=== PATIENT | female | born 1970 | race Caucasian/White ===

== ENCOUNTER 2017-11-09 06:25 | Day surgery (SDC) | payer BC, OTHER ==
[~2017-11-09 06:25] MED LIST: Lactated Ringers 1,000 ML IV SCH; Lidocaine 1%/Sod Bicarbonate in NS 8.4% 1 ML Syringe IV PRN; Sodium Chloride 0.9% 10 ML Syringe FLUSH PRN
--- NOTE | 2017-11-09 07:20 | PCM.PREANE ---
Preanesthetic Assessment - Anesthesia/Transfusion/Family Hx Anesthesia History: Prior Anesthesia Reaction (nausea) Family History of Anesthesia Reaction: No - Review of Systems General: No Symptoms Pulmonary: No Symptoms Cardiovascular: No Symptoms Gastrointestinal: No Symptoms Neurological: No Symptoms Other: Reports: None - Physical Assessment NPO Status Date: 11/08/17 NPO Status Time: 00:00 Pulse: 75 O2 Sat by Pulse Oximetry: 96 Respiratory Rate: 18 Blood Pressure: 144/80 Temperature: 36.8 C Vital Signs: Last Vital Signs Temp 36.8 C 11/09/17 06:30 Pulse 75 11/09/17 06:30 Resp 18 11/09/17 06:30 BP 144/80 H 11/09/17 06:30 Pulse Ox 96 11/09/17 06:30 Height: 1.7 m Weight: 142.519 kg ASA Class: 3 Mental Status: Alert & Oriented x3 Dentition: Reports: Normal Dentition, [place](s) Thyro-Mental Finger Breadths: 3 Mouth Opening Finger Breadths: 3 ROM/Head Extension: Full Lungs: Clear to Auscultation, Normal Respiratory Effort Cardiovascular: Regular Rate, Regular Rhythm, No Murmurs - Lab Values: Laboratory Last Values WBC 9.94 K/mm3 (3.98-10.04) 11/09/17 07:00 RBC 4.30 M/mm3 (3.98-5.22) 11/09/17 07:00 Hgb 13.3 gm/L (11.2-15.7) 11/09/17 07:00 Hct 42.0 % (34.1-44.9) 11/09/17 07:00 MCV 97.7 fl (79.4-94.8) H 11/09/17 07:00 MCH 30.9 pg (25.6-32.2) 11/09/17 07:00 MCHC 31.7 g/dl (32.2-35.5) L 11/09/17 07:00 RDW Std Deviation 47.9 fL (36.4-46.3) H 11/09/17 07:00 Plt Count 422 K/mm3 (182-369) H 11/09/17 07:00 MPV 9.7 fl (9.4-12.3) 11/09/17 07:00 Neut % (Auto) 60.8 % (34.0-71.1) 11/09/17 07:00 Lymph % (Auto) 28.0 % (19.3-51.7) 11/09/17 07:00 [place] % (Auto) 7.8 % (4.7-12.5) 11/09/17 07:00 Eos % (Auto) 2.2 (0.7-5.8) 11/09/17 07:00 Baso % (Auto) 0.8 % (0.1-1.2) 11/09/17 07:00 Neut # (Auto) 6.04 K/mm3 (1.56-6.13) 11/09/17 07:00 Lymph # (Auto) 2.78 K/mm3 (1.18-3.74) 11/09/17 07:00 [place] # (Auto) 0.78 K/mm3 (0.24-0.36) H 11/09/17 07:00 Eos # (Auto) 0.22 K/mm3 (0.04-0.36) 11/09/17 07:00 Baso # (Auto) 0.08 K/mm3 (0.01-0.08) 11/09/17 07:00 Sodium 138 mEq/L (136-145) 10/17/17 15:18 Potassium 4.0 mEq/L (3.5-5.1) 10/17/17 15:18 Chloride 101 mEq/L (98-107) 10/17/17 15:18 Carbon Dioxide 25 mEq/L (21-32) 10/17/17 15:18 Anion Gap 16.0 (5-15) H 10/17/17 15:18 BUN 23 mg/dL (7-18) H 10/17/17 15:18 Creatinine 0.8 mg/dL (0.55-1.02) 10/17/17 15:18 Est Cr Clr Drug Dosing TNP 10/17/17 15:18 Estimated GFR (MDRD) > 60 mL/min (>60) 10/17/17 15:18 BUN/Creatinine Ratio 28.8 (14-18) H 10/17/17 15:18 Glucose 89 mg/dL (74-106) 10/17/17 15:18 Calcium 9.7 mg/dL (8.5-10.1) 10/17/17 15:18 Total Bilirubin 0.3 mg/dL (0.2-1.0) 10/17/17 15:18 AST 15 U/L (15-37) 10/17/17 15:18 ALT 34 U/L (14-59) 10/17/17 15:18 Alkaline Phosphatase 57 U/L (46-116) 10/17/17 15:18 Total Protein 7.9 g/dl (6.4-8.2) 10/17/17 15:18 Albumin 4.2 g/dl (3.4-5.0) 10/17/17 15:18 Globulin 3.7 gm/dL 10/17/17 15:18 Albumin/Globulin Ratio 1.1 (1-2) 10/17/17 15:18 Urine Color Yellow (Yellow) 11/09/17 06:36 Urine Appearance Clear (Clear) 11/09/17 06:36 Urine pH 6.0 (5.0-8.0) 11/09/17 06:36 Ur Specific [place] > or = 1.030 (1.005-1.030) 11/09/17 06:36 Urine Protein Negative (Negative) 11/09/17 06:36 Urine Glucose (UA) Negative (Negative) 11/09/17 06:36 Urine Ketones Negative (Negative) 11/09/17 06:36 Urine Occult Blood Negative (Negative) 11/09/17 06:36 Urine Nitrite Negative (Negative) 11/09/17 06:36 Urine Bilirubin Negative (Negative) 11/09/17 06:36 Urine Urobilinogen 0.2 (0.2-1.0) 11/09/17 06:36 Ur Leukocyte Esterase Negative (Negative) 11/09/17 06:36 Urine RBC 0-5 /hpf (0-5) 11/09/17 06:36 Urine WBC 0-5 /hpf (0-5) 11/09/17 06:36 Ur Epithelial Cells 0-5 /hpf (0-5) 11/09/17 06:36 Urine Bacteria Few /hpf (FEW) 11/09/17 06:36 Urine Mucus Few /hpf (FEW) 11/09/17 06:36 Urine HCG, Qual Negative (NEGATIVE) 11/09/17 06:36 - Allergies Allergies/Adverse Reactions: Allergies Allergy/AdvReac Type Severity Reaction Status Date / Time rhubarb Allergy Cannot Verified 11/08/17 16:24 Remember - Anesthesia Plan Pre-Op Medication Ordered: Beta Josie Beta Josie: Propranolol Med Last Dose Date: 11/09/17 Med Last Dose Time: 04:10 - Acknowledgements Anesthesia Type Planned: General Anesthesia Pt an Appropriate Candidate for the Planned Anesthesia: Yes Alternatives and Risks of Anesthesia Discussed w Pt/Guardian: Yes Pt/Guardian Understands and Agrees with Anesthesia Plan: Yes PreAnesthesia Questionnaire HEENT History: Reports: Other (See Below) 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 Cardiovascular History: Reports: Hypertension Respiratory History: Reports: Sleep Apnea Genitourinary History: Reports: None 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: Reports: Endometriosis, Other (See Below) Other OB/BYN History: dysmenorrhea, irregular menses, metrohhagia, ovarian cyst , , laparoscopy Musculoskeletal History: Reports: Back Pain, Chronic, Other (See Below) Other Musculoskeletal History: humerus fracture Neurological History: Reports: Migraines Psychiatric History: Reports: Anxiety Endocrine/Metabolic History: Reports: Diabetes, Type II Hematologic History: Reports: None Immunologic History: Reports: None Oncologic (Cancer) History: Reports: None Dermatologic History: Reports: None - Past Surgical History HEENT Surgical History: Reports: None Cardiovascular Surgical History: Reports: None Respiratory Surgical History: Reports: None GI Surgical History: Reports: Hernia, Inguinal Female Surgical History: Reports: None, D&C Endocrine Surgical History: Reports: None Neurological Surgical History: Reports: None Other Musculoskeletal Surgeries/Procedures:: right foot surgery with hardware Oncologic Surgical History: Reports: None Dermatological Surgical History: Reports: None - SUBSTANCE USE Smoking Status *Q: Former Smoker Second Hand Smoke Exposure: No Days Per Week of Alcohol Use: 0 Number of Drinks Per Day: 0 Total Drinks Per Week: 0 Recreational Drug Use History: No - HOME MEDS Home Medications: Home Meds Albuterol [Ventolin HFA] 2 puff INH Q4H PRN 03/09/15 [History] Budesonide/Formoterol [Symbicort 160-4.5 MCG] 2 puff INH BID PRN 03/09/15 [ History] Cyclobenzaprine [Flexeril] 10 mg PO BEDTIME PRN 03/09/15 [History] ALPRAZolam [Xanax] 0.5 mg PO BEDTIME PRN 11/08/17 [History] DULoxetine HCl [Duloxetine HCl] 60 mg PO DAILY 11/08/17 [History] Hydrocodone/Acetaminophen [Hydrocodon-Acetaminophn 10-325] 1 - 2 each PO Q6HR PRN 11/08/17 [History] Meloxicam [Meloxicam] 15 mg PO DAILY 11/08/17 [History] Montelukast [Singulair] 10 mg PO DAILY 11/08/17 [History] Potassium Chloride 10 meq PO DAILY 11/08/17 [History] Promethazine [Phenergan] 25 mg PO Q8H PRN 11/08/17 [History] Propranolol HCl 40 mg PO BID 11/08/17 [History] SUMAtriptan Succinate [Imitrex] 100 mg PO ASDIRECTED PRN 11/08/17 [History] Triamterene/Hydrochlorothiazid [Triamterene-HCTZ 37.5-25 MG] 1 tab PO DAILY [History] amLODIPine Besylate [Amlodipine Besylate] 10 mg PO DAILY 11/08/17 [History] metFORMIN [Glucophage] 1,000 mg PO BEDTIME 11/08/17 [History] - CURRENT (IN HOUSE) MEDS Current Meds: Current Medications Lactated Ringer's (Ringers, Lactated) 1,000 mls @ 125 mls/hr IV ASDIRECTED MARY Stop: 11/09/17 18:00 Lidocaine/Sodium Bicarbonate (Buffered Lidocaine 1% In Ns 8.4%) 0.25 ml IV ONETIME PRN PRN Reason: Prior to IV Start Stop: 11/09/17 18:00 Sodium Chloride (Saline Flush) 10 ml FLUSH ASDIRECTED PRN PRN Reason: Keep Vein Open Stop: 11/09/17 18:00
[2017-11-09] MEDS ORDERED: Bupivacaine 0.5% 30 ML SDV ONE (07:22)
[2017-11-09] MEDS ORDERED: Scopolamine 1.5 MG Transdermal Patch TOP ONE (07:25)
[2017-11-09] MEDS ORDERED: Rocuronium 50 MG/5 ML Vial ONE ×2 (07:38→09:04)
[2017-11-09] MEDS ORDERED: Ondansetron 4 MG/2 ML SDV ONE (07:38)
[2017-11-09] MEDS ORDERED: Propofol 200 MG/20 ML SDV ONE (07:39)
[2017-11-09] MEDS ORDERED: fentaNYL 250 MCG/5 ML SDV ONE ×2 (07:39→09:08)
[2017-11-09] MEDS ORDERED: Midazolam 1 MG/ML 2 ML SDV ONE (07:39)
[2017-11-09] MEDS ORDERED: Lactated Ringers 1,000 ML ONE ×2 (08:21→09:39)
[2017-11-09] MEDS ORDERED: ceFAZolin 1 GM Vial ONE (08:21)
[2017-11-09] MEDS ORDERED: HYDROmorphone 1 MG/ML Syringe ONE ×2 (08:34→09:53)
[2017-11-09] MEDS ORDERED: Dexamethasone 4 MG/ML SDV ONE (08:35)
[2017-11-09] MEDS: Lidocaine 1% with EPINEPHrine 1:100,000 20 ML MDV ONE ×2 (09:33→09:40)
[2017-11-09] MEDS: Sodium Chloride 0.9% 50 ML SDV ONE ×2 (09:33→09:40)
[2017-11-09] MEDS ORDERED: Ondansetron 4 MG/2 ML SDV IVPUSH PRN (10:10)
[2017-11-09] MEDS ORDERED: Acetaminophen/oxyCODONE 325-5 MG Tab PO PRN (10:10)
--- NOTE | 2017-11-09 10:16 | PCM.OPNOTE ---
- General Post-Op/Procedure Note Date of Surgery/Procedure: 11/09/17 Operative Procedure(s): Laparoscopically assisted vaginal hysterectomy with left salpingo-oophorectomy Findings: Surgically absent right tube and ovary. Hemosiderin left side consistent with probable endometriosis. Pelvis otherwise relatively unremarkable. Moderate relaxation noted. Pre Op Diagnosis: 1. Dysmenorrhea. 2. Pelvic pain. 3. Endometriosis Post-Op Diagnosis: Same Anesthesia Technique: General ET Tube Other Anesthesia Type: Marcaine 0.5%local, lidocaine percent with epi-local20 mL Primary Surgeon: Cirilo Beckman Secondary Surgeon: Theo Rene Anesthesia Provider: Kaz Mckeon Internet Sales Manager: Buck Weber Reason Internet Sales Manager Was Necessary: Retraction: Quality of care, patient's Role of Internet Sales Manager: Retraction Pathology: Uterus left tube and ovary Fluid Replacement, Intraop: 2,400 Output, Urine Amount: 100 EBL in mLs: 200 Drain/Tube Comments:: Indwelling bladder catheter during surgery only. Removed at the end of the case. Complications: None Condition: Good Free Text/Narrative:: Surgery duration: 94 minutes Procedure:The patient was taken to the operating room placed in supine position on the operating table. She received 2 g of Ancef preoperatively for infection prophylaxis. She had signed consent previously. After adequate anesthesia patient was placed in a dorsal lithotomy position. It should be noted she had sequential compression stockings in place for DVT prophylaxis. A uterine manipulator was placed as was an indwelling bladder catheter. This after adequate prepping and draping. The patient was placed in supine position and for laparotomy port sites withi developed. Marcaine 0.5% approximately 3-4 mL at each site use. Infraumbilical, suprapubic and 2 lateral port sites were developed. Pneumoperitoneum was then established and under laparoscopic guidance the upper portion of the hysterectomy was performed. The right broad ligament and uterine vasculature was taken down using the Enseal cautery device.. At this time because of difficulty in seeing things up scopic due to patient body habitus and obesity decision was made to proceed with vaginal approach. Vaginal approach was then undertaken. The patient was placed in the dorsal lithotomy position and a weighted speculum was placed in the vagina. The cervix was injected with lidocaine quarter percent with epinephrine 20 mL total. A full circumference incision was made through the epithelium around the cervix. Posterior cul-de-sac was entered without problems. The left uterosacral ligament and then the right uterosacral were taken down using the Enseal vessel closure system. The cardinal ligament and what remained of the uterine vascular vessels and cervical branches of the vessels were managed with the Enseal vessel closure system on each side. Anterior cul-de-sac was then entered and the remaining portion of broad ligament on the right side and a small portion of broad ligament remaining on the left side were then developed in the usual fashion. Uterus was then removed. At this point the uterus was completely removed and sent as specimen. Left ovary and fallopian tube were then removed using a Radha clamp control of pedicle and suture ligature of #1 Vicryl. The vaginal cuff was then run with a locked running suture of 0 Monocryl . Circumference. The vagina was closed with a running locked suture of 0 Monocryl. Hemostasis was confirmed this time and no bleeding was noted. Each of these single interrupted suture of 3-0 Monocryl. There further approximated with Dermabond skin glue. At this point the patient was awakened from general endotracheal anesthesia. The B[place]on catheter had been removed by this time. She is discharged from the operating room in good condition.
[2017-11-09] MEDS ORDERED: Ketorolac 30 MG/ML SDV IVPUSH PRN (10:19)
[2017-11-09] MEDS ORDERED: HYDROmorphone 0.5 MG/0.5 ML Syringe IVPUSH PRN (10:19)
[2017-11-09] MEDS ORDERED: fentaNYL 100 MCG/2 ML SDV IVPUSH PRN (10:19)
--- NOTE | 2017-11-09 10:21 | PCM.POSTAN ---
POST ANESTHESIA ASSESSMENT - MENTAL STATUS Mental Status: Somnolent - VITAL SIGNS Pulse Rate: 97 SaO2: 91 Resp Rate: 16 Blood Pressure: 142/86 Temperature: 36.8 C - RESPIRATORY Respiratory Status: Respiratory Rate WNL, Airway Patent, O2 Saturation Stable, Supplemental Oxygen - CARDIOVASCULAR CV Status: Pulse Rate WNL, Blood Pressure Stable - GASTROINTESTINAL GI Status: No Symptoms - PAIN Pain Score: 0 - POST OP HYDRATION Hydration Status: Adequate & Stable - OBSERVATIONS Free Text/Narrative:: no anesthesia complications noted
[2017-11-09] MEDS ORDERED: oxyCODONE 5 MG Tab PO PRN (14:00)
[2017-11-09 14:31] VITALS: BP 118/78
== END 2017-11-09 14:20 | disposition home or self-care (01) ==
LOC: JD.SDS 06:25
PROVIDERS: ATTEND Obstetrics & Gynecology
DX: N72 Inflammatory disease of cervix uteri (principal); N84.0 Polyp of corpus uteri; N83.12 Corpus luteum cyst of left ovary; N88.8 Other specified noninflammatory disorders of cervix uteri; R23.4 Changes in skin texture; Z88.8 Allergy status to other drugs, medicaments and biological substances
CPT/HCPCS: 36415; 58552; 80051; 80053; 81001; 81003; 81025; 82550; 85025; 86850; 86900; 86901; A9270; J0690; J1100; J1170; J1885; J2250; J2405; J3010; J7120; 00840; J2704

== ENCOUNTER 2022-05-08 07:44 | Day surgery (SDC) | payer BC, OTHER ==
[~2022-05-08 07:44] MED LIST changes: +Lidocaine 1%/Sod Bicarbonate in NS 8.4% 1 ML Syringe IDERM PRN; -Lidocaine 1%/Sod Bicarbonate in NS 8.4% 1 ML Syringe IV PRN; +Sodium Chloride 0.9% 10 ML Syringe FLUSH SCH
[2022-05-08] MEDS ORDERED: Lidocaine 1% 4 ML ONE (08:18)
[2022-05-08] MEDS ORDERED: Propofol 200 MG/20 ML SDV ONE ×2 (08:18→09:25)
[2022-05-08] MEDS ORDERED: Scopolamine 1.5 MG Transdermal Patch TOP SCH (08:54)
[2022-05-08] MEDS ORDERED: Ondansetron 4 MG/2 ML SDV ONE (09:08)
[2022-05-08 10:13] VITALS: BP 126/78; PULSE 82
== END 2022-05-08 10:10 | disposition home or self-care (01) ==
LOC: JD.SDS 07:44
PROVIDERS: ATTEND Surgery
DX: K29.50 Unspecified chronic gastritis without bleeding (principal); K29.80 Duodenitis without bleeding; K31.819 Angiodysplasia of stomach and duodenum without bleeding; K31.89 Other diseases of stomach and duodenum; K25.9 Gastric ulcer, unspecified as acute or chronic, without hemorrhage or perforation; G47.00 Insomnia, unspecified; I10 Essential (primary) hypertension; E11.9 Type 2 diabetes mellitus without complications; Z87.891 Personal history of nicotine dependence; K21.9 Gastro-esophageal reflux disease without esophagitis; F32.A Depression, unspecified; F41.9 Anxiety disorder, unspecified; Z91.018 Allergy to other foods; Z91.012 Allergy to eggs; Z79.899 Other long term (current) drug therapy
CPT/HCPCS: 43239; A9270; J2405; J2704; J7120; 00731

== ENCOUNTER 2022-06-12 08:59 | Day surgery (SDC) | payer BC ==
[2022-06-12] MEDS ORDERED: Scopolamine 1.5 MG Transdermal Patch TOP SCH (09:31)
[2022-06-12] MEDS ORDERED: Propofol 200 MG/20 ML SDV ONE ×6 (10:16→11:29)
[2022-06-12] MEDS ORDERED: Lidocaine 1% 4 ML ONE (10:16)
[2022-06-12] MEDS ORDERED: fentaNYL 100 MCG/2 ML SDV ONE (10:16)
[2022-06-12] MEDS ORDERED: Ondansetron 4 MG/2 ML SDV ONE (10:27)
[2022-06-12] MEDS ORDERED: Lactated Ringers 1,000 ML ONE (11:16)
[2022-06-12 12:25] VITALS: BP 132/60; PULSE 78
== END 2022-06-12 12:20 | disposition home or self-care (01) ==
LOC: JD.SDS 08:59
PROVIDERS: ATTEND Surgery
DX: K31.89 Other diseases of stomach and duodenum (principal); K31.5 Obstruction of duodenum; K26.9 Duodenal ulcer, unspecified as acute or chronic, without hemorrhage or perforation; K29.80 Duodenitis without bleeding; F17.210 Nicotine dependence, cigarettes, uncomplicated; F41.9 Anxiety disorder, unspecified; G47.33 Obstructive sleep apnea (adult) (pediatric); F32.A Depression, unspecified; I10 Essential (primary) hypertension; G43.909 Migraine, unspecified, not intractable, without status migrainosus; E11.42 Type 2 diabetes mellitus with diabetic polyneuropathy; Z79.899 Other long term (current) drug therapy; Z88.8 Allergy status to other drugs, medicaments and biological substances; Z91.012 Allergy to eggs; Z91.018 Allergy to other foods; Z98.890 Other specified postprocedural states
CPT/HCPCS: 43239; A9270; J2405; J2704; J3010; J7120; 00731